=== PATIENT | female | born 1970 | race Hispanic/Latino ===

== ENCOUNTER 2019-09-02 13:43 | Emergency (ER) | payer BC | END 2019-09-02 15:53 | disposition home or self-care (01) | LOC: EDH 13:43 | DX: J06.9 Acute upper respiratory infection, unspecified (principal) | CPT/HCPCS: 87804 ==

== ENCOUNTER 2021-11-14 13:19 | Emergency (ER) | payer BC ==
[~2021-11-14] VITALS: Ht 157.5 cm; Wt 119.7 kg
[2021-11-14 14:08] LABS: BASOPHILS % (AUTO) 0.3 % (0.0-5.0); EOSINOPHILS % (AUTO) 1.6 % (0.0-8.0); HEMATOCRIT 38.6 % (36-48); LYMPHOCYTES % (AUTO) 30.3 % (21.0-51.0); MEAN CORPUSCULAR HEMOGLOBIN 34.7 pg (27.0-33.0); MEAN CORPUSCULAR HGB CONC 34.7 g/dL (32.0-36.0); MONOCYTES % (AUTO) 5.7 % (3.0-13.0); NEUTROPHILS % (AUTO) 61.8 % (40.0-77.0); PLATELET COUNT (AUTO) 228 K/uL (130-400); RED BLOOD CELL COUNT(AUTO) 3.86 MIL/uL (4.00-5.50); RED CELL DISTRIBUTION WIDTH 12.4 % (11.0-15.5); WHITE BLOOD COUNT (AUTO) 7.6 K/uL (4.8-10.8)
[2021-11-14 14:18] LABS: CREATININE 0.7 mg/dL (0.5-1.5); POTASSIUM 4.1 mmol/L (3.5-5.1)
[2021-11-14 14:24] LABS: ALBUMIN 3.1 g/dL (3.5-5.0); BILIRUBIN,TOTAL 0.2 mg/dL (0.2-1.0); TOTAL PROTEIN, SERUM 7.6 g/dL (6.0-8.3)
[2021-11-14 14:28] LABS: B-TYPE NATRIURETIC PEPTIDE < 5 pg/mL (0-100)
[2021-11-14 14:37] VITALS: BP 108/52
== END 2021-11-14 14:54 | disposition home or self-care (01) ==
LOC: EDH 13:19
DX: F43.0 Acute stress reaction (principal); R06.00 Dyspnea, unspecified
CPT/HCPCS: 36415; 71045; 80053; 81025; 83880; 84484; 85025; 85378; 93005

== ENCOUNTER 2023-04-17 18:25 | Emergency (ER) | payer BC, OTHER ==
[~2023-04-17] VITALS: Ht 160 cm; Wt 106.6 kg
[2023-04-17] MEDS ORDERED: ONDANSETRON 4MG INJ ONE (19:41)
[2023-04-17 19:52] LABS: APPEARANCE,URINE CLEAR (CLEAR); BILIRUBIN,URINE NEGATIVE (NEGATIVE); COLOR,URINE LIGHT-YELLOW (YELLOW); GLUCOSE, URINE (UA) NEGATIVE (NEGATIVE); KETONES,URINE NEGATIVE (NEGATIVE); LEUKOCYTE ESTERASE ,URINE NEGATIVE Leu/uL (NEGATIVE); NITRATE,URINE NEGATIVE (NEGATIVE); OCCULT BLOOD,URINE SMALL (NEGATIVE); PH,URINE 5.5 (5.0-8.0); PROTEIN,URINE NEGATIVE (NEGATIVE); UROBILINOGEN,URINE 0.2 mg/dL (0.2-1.0)
[2023-04-17 19:53] LABS: BASOPHILS % (AUTO) 0.2 % (0.0-5.0); EOSINOPHILS % (AUTO) 0.7 % (0.0-8.0); HEMATOCRIT 35.5 % (36-48); LYMPHOCYTES % (AUTO) 14.4 % (21.0-51.0); MEAN CORPUSCULAR HEMOGLOBIN 34.6 pg (27.0-33.0); MEAN CORPUSCULAR HGB CONC 34.6 g/dL (32.0-36.0); MONOCYTES % (AUTO) 4.5 % (3.0-13.0); PLATELET COUNT (AUTO) 202 K/uL (130-400); RED BLOOD CELL COUNT(AUTO) 3.55 MIL/uL (4.00-5.50); WHITE BLOOD COUNT (AUTO) 5.6 K/uL (4.8-10.8)
[2023-04-17] MEDS ORDERED: ONDANSETRON 4MG INJ IVP ONE (20:00)
[2023-04-17 20:02] LABS: CARBON DIOXIDE 27 mmol/L (21-32); CHLORIDE 106 mmol/L (101-111); CREATININE 0.6 mg/dL (0.5-1.5); GLOMERULAR FILTR. RATE CALC 109 mL/min (>90); GLUCOSE,RANDOM 114 mg/dL (70-105); POTASSIUM 3.5 mmol/L (3.5-5.1); SODIUM SERUM 138 mmol/L (136-145); UREA NITROGEN, BLOOD 14 mg/dL (7-18)
[2023-04-17 20:06] LABS: ALANINE AMINOTRANSFERASE 12 U/L (12-78); ALBUMIN 3.2 g/dL (3.5-5.0); ASPARTATE AMINOTRANSFERASE 17 U/L (10-37); TOTAL PROTEIN, SERUM 7.3 g/dL (6.0-8.3)
[2023-04-17 20:06] LABS: HCG,QUALITATIVE URINE NEGATIVE (NEGATIVE)
[2023-04-17 20:32] LABS: LIPASE < 50 U/L (114-286)
[2023-04-17 20:45] LABS: BACTERIA,URINE RARE /HPF (None Seen); MUCUS,URINE RARE LPF (None Seen); SQUAMOUS EPITHELIAL CELL,UR RARE /HPF (0-2)
[2023-04-17 21:21] VITALS: BP 128/56
== END 2023-04-17 21:23 | disposition home or self-care (01) ==
LOC: EDH 18:25
DX: K29.70 Gastritis, unspecified, without bleeding (principal); R10.13 Epigastric pain
CPT/HCPCS: 99283; 96374; 80053; 83690; 85025; 87077; 87088; 87186; 81001; 81025; 36415; J2405

== ENCOUNTER 2025-02-02 16:29 | Emergency (ER) | payer SELFPAY ==
[~2025-02-02] VITALS: Ht 157.5 cm; Wt 122.5 kg
[2025-02-02 16:56] LABS: RAPID GROUP A STREP negative (NEGATIVE)
[2025-02-02 17:01] LABS: SARS-CoV-2, RNA, NAAT NEGATIVE SARS CoV-2 (NEGATIVE)
[2025-02-02 17:06] LABS: INFLUENZA TYPE A Negative For Type A (NEGATIVE); INFLUENZA TYPE B Negative For Type B (NEGATIVE)
[2025-02-02] MEDS: guaiFENesin-coDEINE 5 ML SYRUP PO ONE (17:30)
[2025-02-02] MEDS: dexaMETHasone SOD PHOSPHATE 4 MG/ML 1ML VIAL IM SCH (17:30)
--- NOTE | 2025-02-02 17:40 | ERN ---
ED Note History of Present Illness Stated Complaint: FATIGUE, SWELLING THROAT, BODY ACHE Chief Complaint: Cough Time Seen by MD: 17:14 Time Seen by Midlevel: 17:14 Dictation: The patient is a 54-year-old female with no past medical history who presents to the emergency department with complaints of sore throat, nonproductive cough, nasal congestion, wheezing onset a week and a half ago. Patient denies any fevers. Allergies: Coded Allergies: No Known Allergies (Unverified Allergy, Unknown, 09/02/19) Past Medical History Past Medical History: Migraines Surgical History: Social History: Other RN Note Reviewed/Agreed w/PFSH: Yes Review of System Dictation Constitutional: Negative for fever,chills, and weight loss Eyes: Negative for injury, pain,redness, and discharge ENT: Negative for injury,pain or swelling positive for sore throat Cardiovascular: Negative for chest pain, palpitations, and edema Respiratory: Positive for shortness of breath, cough, and wheezing, Abdomen/GI: Negative for abdominal pain, nausea, vomiting, diarrhea, and constipation Back: Negative for injury and pain : Negative for injury, bleeding and discharge MS/Extremity: Negative for injury and deformity Skin: Negative for rash, and discoloration Neuro: Negative for headache, weakness, numbness, tingling, and seizure Psych: Negative for suicide ideation, homicidal ideation, and hallucinations Initial Vital Sign VS Vital Signs Date Time Temp Pulse Resp B/P (MAP) Pulse Ox O2 Delivery O2 Flow Rate FiO2 02/02/25 16:34 98.4 92 16 115/55 96 Room Air 0 Physical Exam Dictation Vital Signs reviewed General Appearance: Alert, oriented x 3, no acute distress, well developed, n ourished. Head and Face: non-traumatic. Eyes: PERRL, pink conjunctivas, eyelid no trauma, anterior chamber with arcus senilis. Ears: Pinnas intact and no signs of trauma or erythema ear canals clear and no discharge TM no erythema Nose: No discharge, no bleeding. Oropharynx: Mouth normal, tongue pink. pharynx clear,no erythema, tonsils no exudates, no abscesses noted, mucous m embrane moist Neck: Supple, non-tender, no thyromegaly, no masses, no JVD, no bruits Breast:Deferred Chest:No tenderness, no crepitus, no paradoxical movement, no retractions Lungs:Clear, well-ventilated, symmetric, no rales, mild wheezing, no rhonchi, no stridor, good breath sounds bilaterally Heart: Regular rate, regular rhythm, no murmur, no gallops Vascular: no peripheral edema, Abdomen: Soft, positive bowel sounds, nondistended, no guarding, nontender, no rebound, no masses no hepatomegaly, no splenomegaly, no Collazo's sign, no hernias. Rectal: Deferred Genital: Deferred Neurological: Normal speech, motor function intact, sensory function intact Musculoskeletal: Neck nontender, full range of motion, back nontender, full range of motion, Extremities: nontender, full range of motion Skin: Color pink, dry, no turgor, no rash, no lacerations, no abrasions, no contusions. Lymphatic: Deferred Results (Laboratory/Radiology) Laboratory/Radiology Laboratory Tests Test 02/02/25 16:40 Influenza Type A Antigen Negative For Type A Influenza Type B Antigen Negative For Type B SARS-CoV-2, RNA, NAAT NEGATIVE SARS CoV-2 Group A Streptococcus Rapid negative (NEGATIVE) REASON: cough ORDERING PHYSICIAN: NEENA ROBERTSON SPECIAL EDUCATION TEACHING ASSISTANT PROCEDURE: CXR1VW - CHEST 1VW PORTABLE CHEST RADIOGRAPH INDICATION: cough COMPARISON: 11/14/2021 FINDINGS: Heart size is normal. The pulmonary vascularity and sherri appear normal. No abnormal pulmonary parenchymal opacity or consolidation identified. No significant pleural effusion noted. No pneumothorax detected. IMPRESSION: No radiographic evidence for any acute cardiopulmonary process. Labs Reviewed?: Yes ED Course ED Course Orders Procedure Category Date Status Time Covid Rna Naat LAB 02/02/25 Complete 16:37 Influenza Type A & B, LAB 02/02/25 Complete Rapid 16:37 Rapid (Group A Strep) LAB 02/02/25 Complete 16:37 Chest 1vw RAD 02/02/25 Resulted 17:21 Ipratropium/Albuterol PHA 02/02/25 Complete Neb (Duoneb) 17:30 Guaifenesin-Codeine PHA 02/02/25 Complete Syrup 5ml (Robitussi 17:30 Dexamethasone 4mg/Ml PHA 02/02/25 In Process 1ml Vial (Dexametha 17:30 Current Medications Medications (Trade) Dose Ordered Sig/Jyotsna Route PRN Reason Start Time Stop Time Status Last Admin Dose Admin Albuterol (DUOneb) 1 UDVIAL ONCE ONCE IH 02/02/25 17:30 02/02/25 17:31 DC Dexamethasone Sodium Phosphate (dexaMETHasone 4MG/ML 1ML VIAL) 6 mg ONCE IM 02/02/25 17:30 03/04/25 17:29 Guaifenesin/ Codeine Phosphate (RobiTUSSin AC 5 ML SYRUP) 10 ml ONCE ONCE PO 02/02/25 17:30 02/02/25 17:31 DC Vital Signs Date Time Temp Pulse Resp B/P (MAP) Pulse Ox O2 Delivery O2 Flow Rate FiO2 02/02/25 16:34 98.4 92 16 115/55 96 Room Air 0 Medical Decision Making MDM The patient is a 54-year-old female with no past medical history who presents to the emergency department with complaints of sore throat, nonproductive cough, nasal congestion, wheezing onset a week and a half ago. Patient denies any fevers. Serology negative. X-ray showed no acute pathology. Patient received steroids and respiratory treatments in the ER. Patient with stable vital signs, nontoxic appearance. Ob discharged home to follow up with primary doctor. Differential diagnosis: Bronchitis, pneumonia, upper respiratory infection Need for hospitalization: Patient does not meet criteria for hospitalization. There are no social concerns with this patient. DX & DISP Disposition: Discharge Departure Impression: Primary Impression: Viral bronchitis Condition: Stable Scripts Albuterol Sulfate (Ventolin Hfa/Proventil Hfa/Proair Hfa) 90 Mcg Puff 1-2 PUFF IH Q4H PRN for SHORTNESS OF BREATH for 5 Days, #1 INH 0 Refills PHARMACY TO DISPENSE 1 INHALER FOR USE Prov: NEENA ROBERTSON SPECIAL EDUCATION TEACHING ASSISTANT 02/02/25 Methylprednisolone (Medrol) 4 Mg Tab.ds.pk 4 MG PO AD for 6 Days, #1 PACK Day 1: Take 2 tablets before breakfast,1 tablet after lunch and supper, and 2 tablets at bedtime. Day 2: Take1 tablet before breakfast,1 tablet after lunch,1 tablet after supper, and 2 tablets at bedtime. Day 3: Take 1 tablet before breakfast, 1 tablet after lunch, 1 tablet after supper, and 1 tablet at bedtime. Day 4: Take 1 tablet before breakfast, 1 tablet after lunch, and 1 tablet at bedtime. Day 5: Take1 tablet before breakfast and 1 tablet at bedtime. Day 6: Take 1 tablet before breakfast. Prov: NEENA ROBERTSON 02/02/25 Additional Instructions: Please follow up with your primary doctor in 1-2 days. If symptoms worsen please return to ER. FOLLOW-UP WITH PRIMARY CARE PROVIDER IN 1 TO 2 DAYS. TAKE MEDICATIONS DIRECTED HERE IN THE EMERGENCY ROOM. OKAY TO CONTINUE HOME MEDICATIONS UNLESS OTHERWISE DISCUSSED DURING YOUR VISIT IN THE EMERGENCY ROOM TODAY. RETURN TO YOUR NEAREST EMERGENCY ROOM IF SYMPTOMS WORSEN OR IF THERE IS NO IMPROVEMENT. CALL 911 IF YOU NEED IMMEDIATE ASSISTANCE. TAKE TYLENOL OR MOTRIN [id number] NEEDED AND IF NO CONTRAINDICATIONS ARE PRESENT. INCREASE ORAL HYDRATION. A WOUND CULTURE OR URINE CULTURE WAS ORDERED HERE IN THE EMERGENCY ROOM DEPARTMENT PLEASE FOLLOW-UP WITH PRIMARY CARE PROVIDER AND ADVISE THEM TO GET REPEAT PORTS FROM OUR FACILITY. IF YOU HAD ANY MARTHA WRAP/SPLINTS THAT WERE APPLIED HERE, PLEASE DO NOT REMOVE THEM UNTIL YOU SEE YOUR PRIMARY CARE OR SPECIALTY. Referrals: SELF,REFERRAL (PCP) Time of Disposition: 19:13 I have reviewed the case, and I agree with, Diagnosis and Plan NEENA ROBERTSON Feb 02, 2025 17:40
--- NOTE | 2025-02-02 19:06 | HMCIMG ---
PORTABLE CHEST RADIOGRAPH INDICATION: cough COMPARISON: 11/14/2021 FINDINGS: Heart size is normal. The pulmonary vascularity and sherri appear normal. No abnormal pulmonary parenchymal opacity or consolidation identified. No significant pleural effusion noted. No pneumothorax detected. IMPRESSION: No radiographic evidence for any acute cardiopulmonary process.
[2025-02-02] MEDS ORDERED: METH4TAB3 PO (19:14)
[2025-02-02] MEDS ORDERED: ALBUHFA IH (19:14)
[2025-02-02 21:19] VITALS: BP 128/78; TEMP 98.6; O2SAT 100
[2025-02-02 21:30] VITALS: PULSE 92; RESP 19
[2025-02-02] MEDS: IpraTROPium/alBUTERol SULFATE 3 ML SOLUTION IH ONE (21:30)
== END 2025-02-02 19:34 | disposition home or self-care (01) ==
LOC: EDH 16:29
DX: J20.8 Acute bronchitis due to other specified organisms (principal); B97.89 Other viral agents as the cause of diseases classified elsewhere; G43.909 Migraine, unspecified, not intractable, without status migrainosus; Z20.822 Contact with and (suspected) exposure to COVID-19; Z98.890 Other specified postprocedural states
CPT/HCPCS: 99284; 71045; 87635; 87880; 87804 ×2; 96372; 94640; J1100